=== PATIENT | female | born 1960 | race Caucasian/White ===

== ENCOUNTER 2016-12-21 08:50 | Day surgery (SDC) | payer OTHER ==
[~2016-12-21 08:50] MED LIST: ceFAZolin 2 GM/DEXTROSE 100 ML IV ONE
[2016-12-21] MEDS ORDERED: LIDOCAINE 1% 2 ML INJ ONE (09:14)
[2016-12-21] MEDS ORDERED: CEFAZOLIN 2 GM/DEXTROSE/100 ML BAG IV ONE (09:15)
[2016-12-21] MEDS ORDERED: BUPIVACAINE 0.5% 30 ML SDV ONE (10:12)
[2016-12-21] MEDS ORDERED: PROPOFOL 200 MG/20 ML VIAL ONE (10:23)
[2016-12-21] MEDS ORDERED: MIDAZOLAM 2 MG/2 ML VIAL ONE (10:26)
[2016-12-21] MEDS ORDERED: LIDO/EPI 2%** Not for Epidural 20 ML MDV ONE (10:39)
--- NOTE | 2016-12-21 12:48 | GOP ---
[f rep st] OPERATIVE REPORT DATE OF OPERATION: 12/21/2016 SURGEON: Pool Tabor MD PREOPERATIVE DIAGNOSIS: Left carpal tunnel syndrome. POSTOPERATIVE DIAGNOSIS: Left carpal tunnel syndrome. PROCEDURE PERFORMED: Left endoscopic carpal tunnel release. FINDINGS: The transverse carpal ligament was sectioned. The ligament by appro ximately 8 mm. INDICATIONS: The patient is a 56-year-old woman with electrodiagnostically proven, and particular s ymptomatic carpal tunnel syndrome. She has responded well previously, although briefly, to a cortic osteroid injection. She is brought to the operating room today for definitive surgical management. DESCRIPTION OF PROCEDURE: After routinely checking the patient's identification, consent, and the s uccessful induction of IV sedation, a median nerve block was performed by the operative surgeon jolly manriquez 10 cc of 2% lidocaine plus epinephrine. The patient's left arm and hand were now prepped and drap ed in the usual standard fashion. A surgical time-out was completed. I then exsanguinated the limb with an Esmarch wrap, and allowed it to remain tightly wrapped about the base of the forearm to ret rosangela blood inflow. I extended the wrist over a rolled towel, and held the hand positioned with a nancy d hand. A transverse incision just to the ulnar side of the palmaris longus tendon and the wrist fl exion crease was carried sharply through the skin. It was spread bluntly through the subcutaneous l howard. I dissected sharply through the antebrachial fascia in a transverse fashion. I used a series of dilators to enlarge this opening and extended this into the carpal tunnel. I introduced the Seg WAY endoscopic carpal tunnel retractor. I introduced the arthroscope and used a small rasp to remov e any remaining synovial tissue from the deep surface of the transverse carpal ligament. I used the Hook probe to ascertain the distal edge of the ligament. At this point, I had an exclusive view of the transverse fibers of the transverse carpal ligament without any other intervening soft tissue. As such, I advanced the Hook blade, elevated this, and withdrew it, thereby sectioning the transver se carpal ligament. The above findings were noted. I removed all instruments and irrigated the wou nd with normal saline. I closed the skin with subcuticular 4-0 Monocryl, followed by Steri-Strips. A sterile bulky dressing was applied, followed by compressive wrap. The patient was transferred to the recovery area in excellent condition. She tolerated the procedure well. There were no complic ations. /[id number]/MODL
== END 2016-12-21 12:34 | disposition home or self-care (01) ==
LOC: FSGY 08:50
PROVIDERS: ATTEND Orthopaedic Surgery Hand Surgery
PROC: 0MN Bursae and Ligaments, Release (ICD-10-PCS; principal; 2016-12-21 10:30)
DX: G56.02 Carpal tunnel syndrome, left upper limb (principal); M25.532 Pain in left wrist; Q23.1 Congenital insufficiency of aortic valve; K21.9 Gastro-esophageal reflux disease without esophagitis; Z85.3 Personal history of malignant neoplasm of breast
CPT/HCPCS: J0690; J2250; J2704

== ENCOUNTER → 2017-12-02 | Outpatient (CLI) | payer OTHER | LOC: FIMAGING 14:21 | PROVIDERS: ATTEND Nurse Practitioner Women's Health | DX: Z13.820 Encounter for screening for osteoporosis (principal); M85.89 Other specified disorders of bone density and structure, multiple sites; Z78.0 Asymptomatic menopausal state; Z87.81 Personal history of (healed) traumatic fracture ==

== ENCOUNTER → 2018-05-17 | Outpatient (CLI) | payer OTHER | LOC: FIMAGING 13:33 | PROVIDERS: ATTEND Internal Medicine | DX: M25.552 Pain in left hip (principal); G89.18 Other acute postprocedural pain ==

== ENCOUNTER 2018-05-31 14:45 | Day surgery (SDC) | payer OTHER ==
--- NOTE | 2018-05-29 11:58 | GHP ---
CHIEF COMPLAINT: Right 4th finger injury, history of right 4th finger triggering. HISTORY OF PRESENT ILLNESS: Renae is a pleasant RHD 57-year-old female who presents today for evaluation of a right 4th finger injury. She [facility], describing an incident when she injured her right 4th finger while walking her dog, describing that the leash was wrapped around her finger and forcefully pulled for brief moment, causing a twisting injury to her right finger. She felt a pop and noticed immediate pain and deformity. She was initially seen by HAI Sandoval, in our office where radiographs were taken showing a displaced fracture at the base of the proximal phalanx of the right index finger. A reduction attempt was made, however, despite adequate anesthesia and adequate initial reduction, the fracture did not remain stable. The patient was placed in an Orthoglass ulnar gutter splint extending to the forearm, extending distally to digits 3, 4 and 5. Today, the patient was accompanied by her for today's visit, states that her pain has significantly improved since the initial injury, noting only p.r.n. acetaminophen use. She notes no new onset numbness and tingling, and reports that she has stayed in her splint the entire time. She also notes that she does have a history of triggering in the right 4th finger, which was the last addressed by Dr. Tabor on 02/23/2018, with a corticosteroid injection. She has had a continued symptoms in this finger and understands that likely the corticosteroid injection was a temporary fix. She reports that she has been compliant with her activity restrictions as outlined yesterday, avoiding significant pushing, pulling, lifting, twisting or carrying activities with the affected hand. This is confirmed by her . They have no additional concerns or complaints at this time. PAST MEDICAL HISTORY: This is significant for a history of breast cancer, a bicuspid aortic valve, acid reflux, as well as multiple orthopedic injuries. The patient denies any additional significant past medical history. PAST SURGICAL HISTORY: This is significant for shouder and knee surgery performed by Dr. Enrico Diop, a partial knee replacement performed by Dr. Marcus in 2014, breast cancer surgery with reconstruction in 2009, bladder surgery and pelvic repain in 1998, a foot neuroma excision in 1994, right carpal tunnel release in 1987, and a left endoscopic carpal tunnel release performed at [facility] by Dr. Tabor in 2017. The patient notes no significant issues with anesthesia with any of these recent surgical procedures. She also notes that she has had a colonoscopy within the last 12 months, and reports no adverse reaction with that procedure. MEDICATIONS: The patient reports that she currently takes Zantac, a calcium supplement, and acetaminophen p.r.n. for the current injury. She denies any additional current medications or supplement use. ALLERGIES: The patient states an allergy to Bactrim, which has caused a fixed reaction in her arm of rash, erythema and pruritus. She notes no additional allergies to medications. SOCIAL HISTORY: The patient denies any current or former tobacco use. The patient reports occasional current alcohol consumption. The patient denies any recreational drug use. 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 She is active at an animal [employer]. Her , Dr. Dilip Benjamin, is employed at [employer]. FAMILY HISTORY: No significant contributory family history was reported today. REVIEW OF SYSTEMS: An 11 point review of systems was reviewed today and is negative for any additional concerns or complaints not listed in the HPI or PMH. PHYSICAL EXAMINATION: GENERAL: Healthy-appearing female who presents in NAD. Pleasant and cooperative. HEENT: NC/AT. EOMI, MARYAN. Ears and nares are patent without discharge. OP is clear. NECK: Trachea is midline, no cervical LAD. Full AROM. CARDIOVASCULAR: RRR. RESPIRATORY: CTAB, no increased WOB noted. ABDOMEN: Soft, NT/ND. MUSCULOSKELETAL: The right hand reveals an intact Ortho Glass ulnar gutter splint extending approximately to the forearm, and distally through fingers 3, 4 and 5. The patient is neurovascularly intact with application. The patient is TTP over the proximal phalanx of her right index finger. Significant swelling, and mild ecchymosis are also noted. ROM was not assessed due to fracture status. The patient has intact to light touch sensation distally, as well as in the median, radial, ulnar nerve distributions. No yonathan triggering can be assessed today due to fracture status in the digit which was previously triggering. Review of previous note states that palpable nodule was beneath the ostium of the A1 ashleigh of the right 4th finger. The patient is intact to light touch and sensation distally, as well as the median, radial, and ulnar nerve distributions. Capillary refill is less than 2 seconds in the finger pulps. DNVI BUE. SKIN: Please see above dictation concerning right hand. Otherwise, no rashes or lesions noted. NEURO: A and O x3, speech is noted to be fluid and fluent. No deficits noted. PSYCH: Pleasant and cooperative with today's exam. RADIOGRAPHS: 3 views of the right 4th finger are reviewed today showing a displaced and comminuted proximal phalanx fracture. No additional fracture or dislocations are noted. Unsatisfactory alignment is noted. ASSESSMENT: Right 4th finger proximal phalanx fracture, comminuted, displaced, (ICD 10: S62.614S), right 4th trigger finger (ICD 10: M65.341). PLAN: This patient's case and radiographs were reviewed with Dr. Tabor today, who also saw and examined the patient today. At this time, given the patient's unstable fracture pattern. Dr. Tabor feels that this will only be successfully treated with surgical intervention. After discussion of treatment options with the patient and her today, they have consented to proceed with a closed reduction and pin fixation, with possible open reduction, internal fixation of the right 4th proximal phalanx fracture, as well as a right 4th trigger finger release. These procedures will be performed in the near future at the [facility], pending scheduling availability. Risks and benefits, and alternatives of procedure were discussed with the patient and her today , and a signed informed consent was obtained. Preoperative orders will be placed in the [employer] system. The patient has been provided, at her request, with a prescription for [place] 5/325 mg for postoperative pain management, #10, noting she avoids opioid medications whenever necessary. Renae will return to clinic 10-14 days postoperatively, or sooner with any additional concerns or complaints. All the patient's questions have been answered today and her concerns addressed. She has relayed her understanding of the current care plan and education presented today. It remains my pleasure to assist in the care of this patient. /[id number]/MODL MTDD
[2018-05-31] MEDS ORDERED: ceFAZolin 2 GM/DEXTROSE 100 ML IV ONE (14:56)
[2018-05-31] MEDS ORDERED: LR 1,000 ML IV ONE (15:01)
[2018-05-31] MEDS ORDERED: BACITRACIN 50,000 UNITS/10 ML SYR IRR ONE (16:05)
[2018-05-31] MEDS ORDERED: BUPIVACAINE 0.25% 30 ML SDV ONE (16:05)
--- NOTE | 2018-05-31 16:08 | PDHPUP ---
History & Physical Update H&P update statement: This history and physical update is based on an assessment of the patient which was completed after admission or registration (within 24 hours), but prior to the surgery/procedure. H&P update: H&P reviewed & patient examined, no change in patient's condition since H&P completed
--- NOTE | 2018-05-31 16:08 | PDANEPAE ---
ANE History of Present Illness right 4th finger pinning/ORIF ANE Past Medical History - Cardiovascular History Hx Hypertension: No Hx Arrhythmias: Yes Hx Chest Pain: No Hx Coronary Artery / Peripheral Vascular Disease: No Hx CHF / Valvular Disease: No Hx Palpitations: Yes Cardiovascular History Comment: bicupsid aortic valve. murmur. hx of palpitations. followed by [facility] - Pulmonary History Hx COPD: No Hx Asthma/Reactive Airway Disease: No Hx Recent Upper Respiratory Infection: No Hx Oxygen in Use at Home: No Hx Sleep Apnea: No Sleep Apnea Screening Result - Last Documented: Negative - Neurologic History Hx Cerebrovascular Accident: No Hx Seizures: No Hx Dementia: No - Endocrine History Hx Diabetes: No - Renal History Hx Renal Disorders: Yes Renal History Comment: hx of uti's. hx of bladder suspension - Liver History Hx Hepatic Disorders: No - Neurological & Psychiatric Hx Hx Neurological and Psychiatric Disorders: No - Cancer History Hx Cancer: Yes Cancer History Comment: breast ca- right - Congenital Disorder History Hx Congenital Disorders: No - GI History Hx Gastrointestinal Disorders: Yes Gastrointestinal History Comment: reflux- uses zantac - Other Health History Other Health History: wears glasses/ contacts - Chronic Pain History Chronic Pain: No - Surgical History Prior Surgeries: 12/21/16 left carpal tunnel release with Leander. 04/29/15 left knee partial makoplasty with Amrit. 03/17/15 left shoulder scope with Jadon. 12/17/13 left knee scope with Jadon. 12/29/11 left knee scope with Jadon. left tissue mixing engineer removal with randolph. 01/22/10 bilateral mastectomy and reconstruction with Marco/ [facility] ANE Review of Systems Review of Systems: - Exercise capacity METS (RN): 4 METS ANE Patient History - Allergies Allergies/Adverse Reactions: erythromycin base Allergy (Verified 05/30/18 11:22) BLISTERS ON CORNEA- only eye gtts sulfamethoxazole [From Bactrim] Allergy (Verified 05/30/18 11:22) /"FIXED DRUG REACTION" trimethoprim [From Bactrim] Allergy (Verified 05/30/18 11:22) /"FIXED DRUG REACTION" HAZELNUTS Allergy (Severe, Uncoded 05/30/18 11:22) SOB/ANAPHYLAXIS? - Home Medications Home medications: home medication list seen and reviewed Home Medications: Ranitidine HCl [Zantac] 02/20/15 [Last Taken 05/30/18] Calcium Citrate/Magnesium/D3 12/20/16 [Last Taken 05/31/18 06:30] Tylenol 05/30/18 [Last Taken 05/30/18] - NPO status NPO Since - Liquids (Date): 05/31/18 NPO Since - Liquids (Time): 12:30 NPO Since - Solids (Date): 05/31/18 NPO Since - Solids (Time): 07:15 - Anes Hx Anes Hx: no prior problems - Smoking Hx Smoking Status: Never smoked - Family Anes Hx Family Hx Anesthesia Complications: none ANE Labs/Vital Signs - Vital Signs Blood Pressure: 116/48 Heart Rate: 65 Respiratory Rate: 14 O2 Sat (%): 98 Height: 165.1 cm Weight: 54.431 kg ANE Physical Exam - Airway Neck exam: FROM Mallampati Score: Class 1 Mouth exam: normal dental/mouth exam - Pulmonary Pulmonary: no respiratory distress - Cardiovascular Cardiovascular: regular rate and rhythym - ASA Status ASA Status: II ANE Anesthesia Plan Anesthesia Plan: GA with mask
[2018-05-31] MEDS ORDERED: MIDAZOLAM 2 MG/2 ML VIAL IVP ONE (16:11)
[2018-05-31] MEDS ORDERED: PROPOFOL/EMULSION 500 MG/50 ML BOTTLE IV ONE (16:27)
[2018-05-31] MEDS ORDERED: LIDOCAINE 2% 2 ML INJ ONE (16:29)
[2018-05-31] MEDS ORDERED: fentaNYL 100 MCG/2 ML INJ ONE (16:29)
--- NOTE | 2018-05-31 16:35 | POSTANESTH ---
Post Anesthetic Evaluation Cardiovascular Status: Normal, Stable Respiratory Status: Normal, Stable Level of Consciousness/Mental Status: Can Participate in Eval, Alert and Oriented Pain Control: Adequate, Prn Tx Ordered Nausea/Vomiting Control: Adequate, Prn Tx Ordered Complications Possibly Related to Anesthesia: None Noted
[2018-05-31] MEDS ORDERED: KETOROLAC 30 MG/1 ML SDV ONE (16:38)
[2018-05-31] MEDS ORDERED: DEXAMETHASONE 4 MG/ML VIAL ONE (16:38)
[2018-05-31] MEDS ORDERED: ONDANSETRON 4 MG/2 ML VIAL ONE (16:38)
[2018-05-31] MEDS ORDERED: ePHEDrine SULFATE 25 MG/5 ML SYR ONE (17:04)
[2018-05-31] MEDS ORDERED: HYDROCODONE/APAP 5/325 TAB PO PRN (17:30)
[2018-05-31] MEDS ORDERED: PROMETHAZINE HCL 25 MG/ML INJ IVP PRN (17:30)
[2018-05-31] MEDS ORDERED: METOCLOPRAMIDE 10 MG/2 ML VIAL IVP PRN (17:30)
[2018-05-31] MEDS ORDERED: NALOXONE HCL 0.4 MG/ML INJ IVP PRN (17:30)
[2018-05-31] MEDS ORDERED: fentaNYL 100 MCG/2 ML INJ IVP PRN (17:30)
[2018-05-31] MEDS ORDERED: ALBUTEROL 3 ML DEYVIAL IH PRN (17:30)
[2018-05-31] MEDS ORDERED: ONDANSETRON 4 MG/2 ML VIAL IVP PRN (17:30)
[2018-05-31] MEDS ORDERED: oxyCODONE IR 5 MG TAB PO PRN (17:30)
[2018-05-31] MEDS ORDERED: ACETAMINOPHEN 500 MG TAB PO PRN (17:30)
[2018-05-31] MEDS ORDERED: LR 500 ML IV PRN (17:30)
[2018-05-31] MEDS ORDERED: HYDROmorphONE/DILAUDID 2 MG/ML INJ IVP PRN (17:30)
[2018-05-31] MEDS ORDERED: ACETAMINOPHEN 325 MG TAB PO PRN (17:54)
--- NOTE | 2018-05-31 17:55 | POSTOPPROG ---
Post Op Note Date of Operation: 05/31/18 Surgeon: Pool Tabor Grab Jack Worker: Jann Marks Anesthesiologist: Nathen Anesthesia: LMA Pre-op Diagnosis: P1 fx R IV, TFR R IV Post-op Diagnosis: Same Procedure: CR +Pin Fix R IV P1 fx, TFR Findings: 0.54" Kwires x 2 Inf/Abcess present in the surg proc area at time of surgery?: No EBL: Minimal Complications: None
[2018-05-31] MEDS ORDERED: traMADol 50 MG TAB PO PRN (17:58)
[2018-05-31 18:52] VITALS: BP 124/37
--- NOTE | 2018-06-01 05:20 | GOP ---
DATE OF OPERATION: 05/31/2018 SURGEON: Pool Tabor MD PREOPERATIVE DIAGNOSIS: 1. Right ring finger proximal phalanx displaced comminuted fracture. 2. Right ring trigger finger. POSTOPERATIVE DIAGNOSIS: 1. Right ring finger proximal phalanx displaced comminuted fracture. 2. Right ring trigger finger. PROCEDURE PERFORMED: 1. Closed reduction, percutaneous pin fixation, right ring finger proximal phalanx fracture. 2. Trigger finger release, right ring finger. FINDINGS: I was able to achieve near anatomic reduction. The bones were held in a reduced position with 0.054 inch K-wires x2 in a crossed fashion, placed from proximal to distal, but pulled distally until they were extruding through the skin distally. The A1 ashleigh was remarkably stenotic with dens e synovitis in the flexor tendon sheath. The entirety of the A1 ashleigh was released. INDICATIONS: The patient is a 57-year-old woman, who 4 days ago was walking her dog with a leash thr ough her fingers. The dog pulled suddenly, pulling her finger awkwardly sustaining the above injury. She has had a longstanding trigger finger, which I have seen her before for, that has been incomple tely controlled in the past. She is brought to the operating room to address both issues. DESCRIPTION OF PROCEDURE: After routinely checking the patient's identification and consent, and the successful induction of LMA general anesthetic, the patient's right upper extremity was prepped and draped in the usual standard fashion. A surgical time-out was completed. I then exsanguinated the r ight hand and forearm with Esmarch wrap, and pneumatic tourniquet previously placed about the proxima l right arm was inflated to 250 mmHg. I then visualized the ring finger under the small FluoroScan unit. I passed a K-wire from proximal r adial to distal ulnar across the fracture. I essentially placed this in the condyle proximally. I benson edouard withdrew this distally, realigned the finger, and then passed the K-wire back proximally and seat ed this just at the edge of the cortex on the radial side condyle. I placed a 2nd pin in a similar f ashion to the 1st, but starting on the ulnar border and ending distally and radially. These had a so mewhat steep trajectory, which was necessitated by the particular fracture pattern. Satisfied with t he rigidity of the construct, the K-wires were bent over and trimmed above the skin surface. I then approached the palmar aspect of her A1 ashleigh through a longitudinal incision centered midway between the palmar and digital MP flexion creases in the axis of the right ring finger. I spread gareth ntly through her subcutaneous layer and palmar fascia. Dissected down to the level of the A1 ashleigh with the above findings noted. I made a longitudinal incision first on the radial side, then on the ulnar side of the A1 ashleigh, allowing me to remove the palmar aspect of the A1 ashleigh. I irrigated t his wound thoroughly with normal saline and closed the skin with interrupted sutures of 5-0 nylon. A sterile bulky dressing was applied followed by an ulnar gutter plaster splint. Her thumb and index finger were left free from the splint. She tolerated the procedure well, and was reversed from her anesthetic and extubated in the operating room. There were no complications. /[id number]/MODL
== END 2018-05-31 18:51 | disposition home or self-care (01) ==
LOC: FSGY 14:45
PROVIDERS: ATTEND Orthopaedic Surgery Hand Surgery
PROC: 0LN70ZZ Release Right Hand Tendon, Open Approach (ICD-10-PCS; principal; 2018-05-31 16:30)
PROC: 0PST34Z Reposition Right Finger Phalanx with Internal Fixation Device, Percutaneous Approach (ICD-10-PCS; principal; 2018-05-31 16:30)
DX: S62.614A Displaced fracture of proximal phalanx of right ring finger, initial encounter for closed fracture (principal); M65.341 Trigger finger, right ring finger; X50.1XXA Overexertion from prolonged static or awkward postures, initial encounter; Y93.K1 Activity, walking an animal; K21.9 Gastro-esophageal reflux disease without esophagitis; Q23.1 Congenital insufficiency of aortic valve; Z79.899 Other long term (current) drug therapy
CPT/HCPCS: C1713; J0690; J1100; J1885; J2405; J2704; J3010